=== PATIENT | male | born 1960 | race Caucasian/White ===

== ENCOUNTER → 2017-07-25 16:14 | Outpatient (CLI) | payer OTHER, MEDICARE, SELFPAY ==
--- NOTE | 2017-07-25 16:21 | DI.RAD.S_ITS ---
PROCEDURE: XR SHOULDER LT MIN 2V INDICATIONS: left shoulder pain after injury TECHNIQUE: 3 views of the shoulder were acquired. COMPARISON: [facility], , SHOULDER MINIMUM 2VIEW RIGHT, 08/14/2014, 9:44. FINDINGS: Bones: No fractures or dislocations. No suspicious bony lesions. Visualized ribs appear intact. Mild joint narrowing with periarticular osteophyte formation at the acromioclavicular and glenohumeral joints. Soft tissues: No suspicious soft tissue calcifications. Neural stimulator catheter projected over the T7-T8 level. IMPRESSION: Mild acromioclavicular and glenohumeral joint degeneration. Dictated by: Slade PALUMBO Interpreted: Mati Yuen MD on 07/25/2017 at 16:38 Approved by: Mati Yuen M.D. on 07/25/2017 at 17:27
== END ==
PROVIDERS: Family Provider Family Medicine; PCP Family Medicine; Visit Provider Internal Medicine
DX: M19.012 Primary osteoarthritis, left shoulder (principal); M25.512 Pain in left shoulder
CPT/HCPCS: 73030

== ENCOUNTER → 2017-10-20 07:06 | Outpatient (CLI) | payer OTHER, MEDICARE, SELFPAY ==
[2017-10-20 08:04] LABS: Alanine Aminotransferase 46 IU/L (21-72); Albumin 4.4 g/dL (3.5-5.0); Albumin Globulin Ratio 1.4 (1.0-2.8); Alkaline Phosphatase 79 U/L (38-126); Aspartate Aminotransferase 42 IU/L (17-59); BUN Creatinine Ratio 23.8 (6-22); Bilirubin Total 0.6 mg/dL (0.2-1.3); Blood Urea Nitrogen 19 mg/dL (9-20); Carbon Dioxide 28 mmol/L (22-32); Chloride 101 mmol/L (98-107); Cholesterol 163 mg/dL (140-199); Estimated Glomerular Filt Rate > 60.0 mL/min (>60); Globulin 3.1 g/dL (1.7-4.1); Glucose 245 mg/dL (70-100); HDL Cholesterol 34 mg/dL (40-60); HEMOLYSIS < 15 (0-50); LDL Cholesterol Calculated 94 mg/dL (<100); Potassium 4.1 mmol/L (3.4-5.1); Sodium 144 mmol/L (137-145); Total Protein 7.5 g/dL (6.3-8.2); Triglycerides 176 mg/dL (35-150)
[2017-10-20 08:06] LABS: Hemoglobin A1C% w Est Avg Glu 11.7 % (4.0-6.0)
[2017-10-20 08:07] LABS: Creatinine Urine Random 112.9 mg/dL
[2017-10-20 08:12] LABS: Microalbumi Creatinin Ratio Ur 20.3 ug/mg CR (<30); Microalbumin Urine Random 2.3 mg/dL (0-1.6)
[2017-10-20 08:33] LABS: Prostate Specific Antigen 0.295 ng/mL (0.10-4.00)
== END ==
PROVIDERS: Family Provider Family Medicine; PCP Family Medicine; Visit Provider Family Medicine
DX: E03.9 Hypothyroidism, unspecified (principal); E11.9 Type 2 diabetes mellitus without complications; E78.5 Hyperlipidemia, unspecified; I10 Essential (primary) hypertension; Z12.5 Encounter for screening for malignant neoplasm of prostate
CPT/HCPCS: 36415; 80053; 80061; 82043; 82570; 83036; 84153; 84443

== ENCOUNTER → 2017-11-24 08:20 | Outpatient (CLI) | payer OTHER, MEDICARE, SELFPAY | PROVIDERS: Family Provider Family Medicine; PCP Family Medicine | DX: Z23 Encounter for immunization (principal) | CPT/HCPCS: 90471; 90686 ==

== ENCOUNTER → 2018-02-14 07:07 | Outpatient (CLI) | payer OTHER, MEDICARE, SELFPAY ==
[2018-02-14 08:26] LABS: Add Manual Diff / Slide Review NO; Basophils Percent Auto 0.2 % (0-2); Hematocrit 42.5 % (41-53); Hemoglobin 14.1 g/dL (13.5-17.5); Lymphocytes Percent Auto 33.3 % (25-40); Mean Corpuscular HGB Conc 33.1 % (30-36); Mean Corpuscular Hemoglobin 28.7 PG (26-34); Mean Corpuscular Volume 86.7 fL (80-100); Monocytes Percent Auto 10.9 % (3-14); Neutrophils Absolute Auto 2700 /uL (1500-7000); Neutrophils Percent Auto 48.6 % (50-75); Platelet Count 228 X10^3/uL (150-400); Red Cell Distribution Width 13.3 % (11.6-14.8); White Blood Cell Count 5.6 X10^3/uL (4.5-11.0)
[2018-02-14 09:07] LABS: Alanine Aminotransferase 46 IU/L (21-72); Albumin 4.2 g/dL (3.5-5.0); Albumin Globulin Ratio 1.6 (1.0-2.8); Alkaline Phosphatase 65 U/L (38-126); Aspartate Aminotransferase 49 IU/L (17-59); Bilirubin Total 0.6 mg/dL (0.2-1.3); Blood Urea Nitrogen 14 mg/dL (9-20); Calcium 9.7 mg/dL (8.4-10.2); Carbon Dioxide 29 mmol/L (22-32); Chloride 101 mmol/L (98-107); Cholesterol 175 mg/dL (140-199); Estimated Glomerular Filt Rate > 60.0 mL/min (>60); Globulin 2.7 g/dL (1.7-4.1); Glucose 230 mg/dL (70-100); HDL Cholesterol 29 mg/dL (40-60); HEMOLYSIS < 15 (0-50); LDL Cholesterol Calculated 107 mg/dL (<100); Potassium 4.1 mmol/L (3.4-5.1); Sodium 140 mmol/L (137-145); Total Protein 6.9 g/dL (6.3-8.2); Triglycerides 196 mg/dL (35-150)
[2018-02-14 09:37] LABS: Prostate Specific Antigen Scrn 0.308 ng/mL (0.1-4.0); TSH w/ Reflex to FT4 0.02 uIU/mL (0.47-4.68)
[2018-02-14 10:12] LABS: Free T4, Direct Thyroxine 2.72 ng/dL (0.78-2.19)
[2018-02-17 08:02] LABS: C Peptide 0.58 ng/mL (0.80-3.85)
== END ==
PROVIDERS: PCP Internal Medicine; Visit Provider Internal Medicine
DX: E11.9 Type 2 diabetes mellitus without complications (principal); I10 Essential (primary) hypertension; E78.00 Pure hypercholesterolemia, unspecified; M15.0 Primary generalized (osteo)arthritis; Z12.5 Encounter for screening for malignant neoplasm of prostate
CPT/HCPCS: 36415; 80053; 80061; 84439; 84443; 84681; 85025; G0103

== ENCOUNTER → 2018-05-01 07:00 | Outpatient (CLI) | payer OTHER, MEDICARE, SELFPAY ==
[2018-05-01 07:44] LABS: Blood Urea Nitrogen 18 mg/dL (9-20); Carbon Dioxide 28 mmol/L (22-32); Chloride 101 mmol/L (98-107); Estimated Glomerular Filt Rate > 60.0 mL/min (>60); Glucose 148 mg/dL (70-100); HEMOLYSIS < 15 (0-50); Potassium 4.4 mmol/L (3.4-5.1); Sodium 140 mmol/L (137-145)
[2018-05-01 08:26] LABS: Free T3, Triiodothyronine Free 4.21 pg/mL (2.77-5.27); Free T4, Direct Thyroxine 2.13 ng/dL (0.78-2.19)
[2018-05-01 08:39] LABS: Thyroid Stimulating Hormone < 0.02 uIU/mL (0.47-4.68)
== END ==
PROVIDERS: PCP Internal Medicine; Visit Provider Internal Medicine
DX: E03.9 Hypothyroidism, unspecified (principal); E11.9 Type 2 diabetes mellitus without complications
CPT/HCPCS: 36415; 80048; 84439; 84443; 84481

== ENCOUNTER 2018-07-24 15:12 | Emergency (ER) | payer OTHER, MEDICARE, SELFPAY ==
[2018-07-24 15:17] VITALS: BP 175/89; PULSE 99; RESP 24; TEMP 37; O2SAT 98
--- NOTE | 2018-07-24 15:24 | DI.RAD.S_ITS ---
PROCEDURE: XR CHEST 1V INDICATIONS: chest pain TECHNIQUE: One view of the chest was acquired. COMPARISON: None. FINDINGS: Surgical changes and devices: None. Lungs and pleura: Lungs are clear. No pleural effusions or pneumothorax. Mediastinum: Mediastinal contours appear normal. Heart size is enlarged. Bones and chest wall: No suspicious bony lesions. Overlying soft tissues appear unremarkable. IMPRESSION: No acute process. Cardiomegaly. Dictated by: Kathy Leon M.D. on 07/24/2018 at 14:41 Approved by: Kathy Leon M.D. on 07/24/2018 at 14:42
[2018-07-24 15:30] VITALS: BP 151/84; PULSE 94; RESP 20; O2SAT 98
[2018-07-24 15:34] LABS: Add Manual Diff / Slide Review NO; Basophils Absolute Auto 100 /uL (0-100); Basophils Percent Auto 0.8 % (0-2); Eosinophils Absolute Auto 400 /uL (0-450); Eosinophils Percent Auto 4.5 % (2-4); Hematocrit 41.5 % (41-53); Hemoglobin 13.7 g/dL (13.5-17.5); Lymphocytes Absolute Auto 2200 /uL (1100-4500); Lymphocytes Percent Auto 26.4 % (25-40); Mean Corpuscular HGB Conc 33.1 % (30-36); Mean Corpuscular Hemoglobin 28.6 PG (26-34); Mean Corpuscular Volume 86.5 fL (80-100); Monocytes Absolute Auto 600 /uL (0-900); Monocytes Percent Auto 7.6 % (3-14); Neutrophils Absolute Auto 5000 /uL (1500-7000); Neutrophils Percent Auto 60.7 % (50-75); Platelet Count 258 X10^3/uL (150-400); Red Cell Distribution Width 13.6 % (11.6-14.8); White Blood Cell Count 8.2 X10^3/uL (4.5-11.0)
--- NOTE | 2018-07-24 15:39 | ED.DIZZY ---
HPI - Dizziness General Chief Complaint: Dizziness Stated Complaint: HEAD ACHE DIZZY CHEST PAIN Time Seen by Provider: 07/24/18 15:27 Source: patient Mode of arrival: ambulatory Limitations: no limitations History of Present Illness HPI Narrative: Patient is a 58-year-old male here for evaluation of multiple complaints to include sinus congestion, decreased hearing out of his left ear. Sore throat, cough, and dizziness. He also states that he has occasional right-sided chest discomfort that is sharp and lasts only seconds. He is unable to reproduce the pain by palpation. Has not tried any decongestants because he states that he is afraid to try them because of his high blood pressure. States he is taking the rest of his medications. Related Data Home Medications Medication Instructions Recorded Confirmed brimonidine 1 drp OPHTH TID #10 ml 09/03/15 07/24/18 dorzolamide 1 drp OPHTH #10 ml 09/03/15 06/12/18 amlodipine [Norvasc] 10 mg PO DAILY 07/24/18 07/24/18 atorvastatin 80 mg PO BEDTIME 07/24/18 07/24/18 hydrochlorothiazide 25 mg PO DAILY 07/24/18 07/24/18 metformin [Glucophage] 1,000 mg PO QPM 07/24/18 07/24/18 metformin [Glucophage] 1,500 mg PO QAM 07/24/18 07/24/18 Previous Rx's Medication Instructions Recorded LANCETS (LANCETS ULTRA THIN) 1 ea MC BID #300 ea 02/04/16 amitriptyline 0 PO HS #180 tab 01/11/17 Glucose: Test Strips 0 str BID #100 str 01/12/17 gemfibrozil 600 mg PO BIDAC #180 tab 05/20/17 meloxicam [Mobic] 15 mg PO AMCC #90 tab 06/01/17 insulin glargine (U-100) 100 65 unit SUBCUT QPM #5 syr 09/13/17 unit/mL (3 mL) subcutaneous pen insulin lispro (U-200) 200 unit/mL 30 unit SUBCUT TID #10 ml 09/13/17 (3 mL) subcutaneous pen levothyroxine 300 mcg tablet 300 mcg PO DAILY #90 tab 10/20/17 lisinopril 40 mg tablet 80 mg PO DAILY #120 tab 12/15/17 metoprolol tartrate 50 mg tablet 100 mg PO BID #360 tab 12/15/17 pantoprazole 40 mg tablet,delayed 40 mg PO DAILY #90 tab 01/11/18 release ondansetron 4 mg disintegrating 4 mg PO Q6-8H PRN #30 tab 06/06/18 tablet Allergies Allergy/AdvReac Type Severity Reaction Status Date / Time No Known Drug Allergies Allergy Unknown Verified 07/24/18 15:39 [NO KNOWN DRUG ALLERGIES] POLLEN Allergy Mild LEUNG Uncoded 07/24/18 15:39 Review of Systems Constitutional Denies fever(s) and Denies headache(s) Eyes Denies diplopia ENT Ears, Nose, Mouth, and Throat: Denies vertigo, Reports dizziness, Reports facial pain, Denies headache(s), Reports hearing loss, Reports disequilibrium, Reports sinus pressure, Reports sore throat and Denies throat swelling Cardiovascular Reports chest pain and Denies dyspnea Respiratory Reports cough and Denies dyspnea Gastrointestinal Gastrointestinal: Denies abdominal pain Musculoskeletal Denies myalgias and Denies arthralgias Integumentary/Breasts Denies rash Neurologic Denies vertigo, Reports dizziness, Denies headache(s) and Reports disequilibrium Hematologic/Lymphatic Denies easy bleeding and Denies easy bruising Allergic/Immunologic Denies throat swelling [facility] Medical History BPH (benign prostatic hyperplasia) (Chronic 2009) Chronic back pain (Chronic 1979) Diabetes mellitus (Chronic 2005) Foot pain (Chronic 2013) Hayfever (Chronic 2004) Hip pain (Chronic 2013) Hypertension (Chronic) Hypothyroidism (Chronic 2005) Lumbar spine pain (Chronic 1979) Recurrent sinusitis (Chronic 1999) Tinnitus (Chronic 2004) Chicken pox (Resolved 1970) Colon polyps (Resolved 2012) Surgical History (Updated 07/25/17 @ 11:50 by Serena Kendrick) Anesthesia (Resolved) History of nasal surgery (Resolved ~1972) History of spinal fusion (Resolved 02/1997) History of spinal fusion (Resolved 03/2000) S/P insertion of spinal cord stimulator (Resolved 09/2002) Status post laminectomy (Resolved 02/1980) Status post laminectomy (Resolved 02/1993) Family History (Updated 09/09/17 @ 15:33 by Serena Kendrick) Brother Age: 64 Irritable bowel syndrome Father Cancer High cholesterol Prostate cancer Grandmother Cancer Hodgkin's disease Mother Cancer Hodgkin's disease Grandfather Diabetes mellitus Heart disease Hypertension Grandmother Heart disease Brother No problems noted. Grandfather No problems noted. Sister No problems noted. Social History Smoking Status: Never smoker Family History (Updated 09/09/17 @ 15:33 by Serena Kendrick) Brother Age: 64 Irritable bowel syndrome Father Cancer High cholesterol Prostate cancer Grandmother Cancer Hodgkin's disease Mother Cancer Hodgkin's disease Grandfather Diabetes mellitus Heart disease Hypertension Grandmother Heart disease Brother No problems noted. Grandfather No problems noted. Sister No problems noted. Social History Smoking Status: Never smoker Exam Initial Vital Signs Initial Vital Signs: Vital Signs Temperature 98.6 F 07/24/18 15:17 Pulse Rate 99 H 07/24/18 15:17 Respiratory Rate 24 07/24/18 15:17 Blood Pressure 175/89 H 07/24/18 15:17 Pulse Oximetry 98 07/24/18 15:17 Const General: cooperative, healthy appearing, comfortable, well developed, well groomed and No acute distress Orientation: alert and oriented x3 HENMT Head: normal to inspection and normocephalic Ears: right TM abnormal (Obscured by cerumen) and left TM abnormal (Bulging without erythema) Resp Effort & Inspection: normal respiratory effort Auscultation: clear to auscultation bilaterally Cardio Rate: regular rate Rhythm: regular rhythm Skin Lesions: no lesions Rashes: no rashes Neuro General: alert and awake Cognition: normal cognition Speech: speech normal Motor: muscle tone normal throughout Extrem General: normal to inspection and capillary refill normal Psych Appearance: grossly normal and well kempt Scores HEART Score Heart Score history: Slightly Suspicious Heart Score EKG: Non-Specific repolarization disturbance Heart Score Age: 45-64 years old Heart Score risk factors: 1-2 risk factors Heart Score troponin: < or = to normal limit Heart Score Total: 3 Course Orders Ordered: ED Orders 07/24/18 15:17 EKG-12 Lead Stat 07/24/18 15:21 Complete Blood Count AUTO DIFF Stat Comprehensive Metabolic Panel Stat Lipase Stat Partial Thromboplastin Time Stat Prothrombin Time INR Stat Troponin & CK Cardiac Panel Stat 07/24/18 15:24 XR chest 1V Stat Vital Signs - 8 hr 07/24/18 15:17 07/24/18 15:30 07/24/18 16:30 Temperature 98.6 F Pulse Rate 99 H 94 H 93 H Respiratory Rate 24 20 24 Blood Pressure 175/89 H Blood Pressure [Right Arm] 151/84 H 138/76 Pulse Oximetry 98 98 96 MDM - Dizziness Lab Data Attestation: I reviewed the patient's lab results. Result diagrams: 07/24/18 15:21 07/24/18 15:21 Lab Results 07/24/18 07/24/18 07/24/18 Range/Units 15:21 15:21 15:21 WBC 8.2 (4.5-11.0) X10^3/uL RBC 4.80 (4.5-5.9) X10^6/uL Hgb 13.7 (13.5-17.5) g/dL Hct 41.5 (41-53) % MCV 86.5 (80-100) fL MCH 28.6 (26-34) PG MCHC 33.1 (30-36) % RDW 13.6 (11.6-14.8) % Plt Count 258 (150-400) X10^3/uL Neut % (Auto) 60.7 (50-75) % Lymph % (Auto) 26.4 (25-40) % [place] % (Auto) 7.6 (3-14) % Eos % (Auto) 4.5 H (2-4) % Baso % (Auto) 0.8 (0-2) % Neut # (Auto) 5000 (1460-7905) /uL Lymph # (Auto) 2200 (2376-0565) /uL [place] # (Auto) 600 (0-900) /uL Eos # (Auto) 400 (0-450) /uL Baso # (Auto) 100 (0-100) /uL PT 10.5 (10.1-12.7) SECONDS INR 0.9 (0.9-1.3) APTT 36 (26.4-36.2) SECONDS Sodium 139 (137-145) mmol/L Potassium 3.9 (3.4-5.1) mmol/L Chloride 99 (98-107) mmol/L Carbon Dioxide 28 (22-32) mmol/L BUN 19 (9-20) mg/dL Creatinine 0.90 (0.66-1.25) mg/dL Estimated GFR > 60.0 (>60) mL/min BUN/Creatinine Ratio 21.1 (6-22) Glucose 304 H (70-100) mg/dL Calcium 10.4 H (8.4-10.2) mg/dL Total Bilirubin 0.5 (0.2-1.3) mg/dL AST 27 (17-59) IU/L ALT 34 (21-72) IU/L Alkaline Phosphatase 79 (38-126) U/L Total Creatine Kinase 57 (55-170) U/L CK-MB (CK-2) TNP CK-MB (CK-2) Rel Index TNP Troponin I < 0.012 (0.01-0.034) ng/mL Total Protein 7.6 (6.3-8.2) g/dL Albumin 4.6 (3.5-5.0) g/dL Globulin 3.0 (1.7-4.1) g/dL Albumin/Globulin Ratio 1.5 (1.0-2.8) Lipase 64 (23-300) U/L Imaging Data Chest x-ray: Radiologist's impression: [place] [address] XRay Report Signed Patient: Geovanny Kwan WMR#: [id number] : 2Acct:[id number] Age/Sex: 58 / MDate of Service: 07/24/18 Loc: ED Accession Number: [id number] Procedure: XR chest 1V Ordering Provider: Adalid Pérez D.O. PROCEDURE: XR CHEST 1V INDICATIONS: chest pain TECHNIQUE: One view of the chest was acquired. COMPARISON: None. FINDINGS: Surgical changes and devices: None. Lungs and pleura: Lungs are clear. No pleural effusions or pneumothorax. Mediastinum: Mediastinal contours appear normal. Heart size is enlarged. Bones and chest wall: No suspicious bony lesions. Overlying soft tissues appear unremarkable. IMPRESSION: No acute process. Cardiomegaly. Dictated by: Kathy Leon M.D. on 07/24/2018 at 14:41 Approved by: Kathy Leon M.D. on 07/24/2018 at 14:42 ECG Data Attestation: I personally reviewed and interpreted this ECG as follows: Prior ECG tracings: not available for review Interpretation: Sinus rhythm Ventricular rate 95 Normal axis Normal QRS Normal QTC Nonspecific ST T changes MDM Narrative Medical decision making narrative: Patient does have right-sided sharp chest pain that is intermittent. EKG shows nonspecific EKG changes. His a heart score of 3. I do have low suspicion for ACS. I do suspect that his ?dizziness? is related to the sinus congestion. We did discuss the use of decongestants. Will hold on further workup for now. I have the patient call his primary doctor for follow-up. He expressed understanding and agreement with plan. Discharge Plan Departure Patient Disposition: Home Clinical Impression: Sinus congestion, Atypical chest pain Instructions: DI for Atypical Chest Pain, DI for Dizziness-Nonvertigo Activity Restrictions/Additional Instructions: Recommend you continue all of your medications as directed. Contact your primary care provider for follow-up. Also recommend you start taking a decongestant such as Claritin or Karolyn or Zyrtec as directed. Return to the emergency department for any new or worsening symptoms Prescriptions: No Action ondansetron 4 mg tablet,disintegrating 4 mg PO Q6-8H PRN (Reason: nausea and vomiting) Qty: 30 RF: 0 brimonidine 0.2 % drops 1 drp OPHTH TID Qty: 10 RF: 0 dorzolamide 2 % drops 1 drp OPHTH Qty: 10 RF: 0 LANCETS (LANCETS ULTRA THIN) 1 ea MC BID Qty: 300 RF: 2 amitriptyline 50 MG tablet PO HS Qty: 180 RF: 3 Glucose: Test Strips BID Qty: 100 RF: 3 gemfibrozil 600 MG tablet 600 mg PO BIDAC Qty: 180 RF: 3 meloxicam [Mobic] 15 MG tablet 15 mg PO AMCC Qty: 90 RF: 3 insulin lispro [Humalog KwikPen Insulin] 200 unit/mL (3 mL) insulin pen 30 unit SUBCUT TID Qty: 10 RF: 3 insulin glargine [Lantus Solostar U-100 Insulin] 100 unit/mL (3 mL) insulin pen 65 unit SUBCUT QPM Qty: 5 RF: 3 metoprolol tartrate 50 mg tablet 100 mg PO BID Qty: 360 RF: 1 lisinopril 40 mg tablet 80 mg PO DAILY Qty: 120 RF: 2 pantoprazole 40 mg tablet,delayed release (DR/EC) 40 mg PO DAILY Qty: 90 RF: 0 levothyroxine 300 mcg tablet 300 mcg PO DAILY Qty: 90 RF: 3 atorvastatin 80 mg tablet 80 mg PO BEDTIME RF: 0 amlodipine [Norvasc] 10 mg tablet 10 mg PO DAILY RF: 0 hydrochlorothiazide 25 mg tablet 25 mg PO DAILY RF: 0 metformin [Glucophage] 500 mg Tablet 1,000 mg PO QPM RF: 0 metformin [Glucophage] 500 mg tablet 1,500 mg PO QAM RF: 0 Referrals: Ambrose Castellanos MD [Primary Care Provider] -
[2018-07-24 15:40] LABS: INR 0.9 (0.9-1.3); Prothrombin Time 10.5 SECONDS (10.1-12.7)
[2018-07-24 15:42] LABS: PTT Partial Thromboplastin Tim 36 SECONDS (26.4-36.2)
[2018-07-24 15:46] LABS: Alanine Aminotransferase 34 IU/L (21-72); Albumin 4.6 g/dL (3.5-5.0); Albumin Globulin Ratio 1.5 (1.0-2.8); Alkaline Phosphatase 79 U/L (38-126); Aspartate Aminotransferase 27 IU/L (17-59); BUN Creatinine Ratio 21.1 (6-22); Bilirubin Total 0.5 mg/dL (0.2-1.3); Blood Urea Nitrogen 19 mg/dL (9-20); Calcium 10.4 mg/dL (8.4-10.2); Carbon Dioxide 28 mmol/L (22-32); Chloride 99 mmol/L (98-107); Creatine Kinase 57 U/L (55-170); Estimated Glomerular Filt Rate > 60.0 mL/min (>60); Glucose 304 mg/dL (70-100); HEMOLYSIS < 15 (0-50); Lipase 64 U/L (23-300); Potassium 3.9 mmol/L (3.4-5.1); Sodium 139 mmol/L (137-145); Total Protein 7.6 g/dL (6.3-8.2)
[2018-07-24 15:58] LABS: Troponin I < 0.012 ng/mL (0.01-0.034)
[2018-07-24 16:30] VITALS: BP 138/76; PULSE 93; RESP 24; O2SAT 96
[2018-07-24 17:32] VITALS: BP 143/74; PULSE 93; RESP 25; O2SAT 96
== END 2018-07-24 17:33 | disposition home or self-care (01) ==
PROVIDERS: Emergency Provider Emergency Medicine; PCP Internal Medicine
DX: R07.89 Other chest pain (principal)
CPT/HCPCS: 36591; 71045; 80053; 82550; 83690; 84484; 85025; 85610; 85730; 93005; 99283; 99285

== ENCOUNTER → 2018-09-05 07:01 | Outpatient (CLI) | payer OTHER, MEDICARE, SELFPAY ==
[2018-09-05 08:18] LABS: BUN Creatinine Ratio 22.5 (6-22); Blood Urea Nitrogen 18 mg/dL (9-20); Carbon Dioxide 28 mmol/L (22-32); Chloride 98 mmol/L (98-107); Estimated Glomerular Filt Rate > 60.0 mL/min (>60); HEMOLYSIS < 15 (0-50); Potassium 4.7 mmol/L (3.4-5.1); Sodium 136 mmol/L (137-145)
[2018-09-05 08:39] LABS: Glucose 498 mg/dL (70-100)
[2018-09-05 08:44] LABS: TSH w/ Reflex to FT4 < 0.02 uIU/mL (0.47-4.68)
[2018-09-05 09:18] LABS: Free T4, Direct Thyroxine 1.96 ng/dL (0.78-2.19)
== END ==
PROVIDERS: PCP Internal Medicine; Visit Provider Internal Medicine
DX: E11.9 Type 2 diabetes mellitus without complications (principal); I10 Essential (primary) hypertension; E03.9 Hypothyroidism, unspecified
CPT/HCPCS: 36415; 80048; 83036; 84439; 84443

== ENCOUNTER → 2018-10-26 13:42 | Outpatient (CLI) | payer OTHER, MEDICARE, SELFPAY ==
--- NOTE | 2018-10-26 | DI.NM.S_ITS ---
PROCEDURE: NM REESE PERF SPECT REST & STR Rest and exercise myocardial perfusion SPECT with gated imaging and ejection fraction RADIOPHARMACEUTICAL: 26.9 mCi Tc-99m sestamibi IV at rest and 27.9 mCi Tc-99m sestamibi IV at peak exercise. A [id number] was performed. INDICATIONS: Other chest pain TECHNIQUE: Radiopharmaceutical was injected at peak stress test, and also at rest. SPECT images were obtained. SPECT myocardial perfusion images were displayed in short axis, horizontal long axis, and vertical long axis views. Gated images were reviewed using WiSpry software. COMPARISON: None. CARDIAC STRESS: A standard Chun treadmill exercise tolerance test was performed by the patient under the supervision of an attending staff. The patient exercised for 4 minutes and 4seconds; functional aerobic impairment (MYLES) is +55 %. However, this is underestimated as the exercise was terminated by staff due to hypertension and does not reflect his exercise capacity. Hemodynamic data: There is normal heart rate and hypertensive response to exercise stress. Patient achieved 97% of maximum predicted heart rate at peak exercise. Symptoms: Patient denied chest pain during exercise. EKG: Bassline ECG with sinus tachycardia and diffuse ST/T abnormalities with no significant change with exercise; No diagnostic EKG changes of ischemia; no ectopy. FINDINGS: Raw data: There is good myocardial labeling by radiotracer. No significant motion artifacts. Gqvh-ns-sahfx ratio is 0.40 (normal is less than 0.38 for sestamibi tracer, and less than 0.50 for thallium tracer). Left ventricle function: Gated images demonstrate normal left ventricle wall thickening. No segmental wall motion abnormality. No transient ischemic dilation; TID is 0.66 (normal less than 1.3). The left ventricle resting end-diastolic volume is 93 mL. Left ventricle stress ejection fraction is >75% ; normal values are above 45%. Myocardial perfusion: There is a small, mild id inferolateral wall defect on supine stress images that completely resolves on prone imaging, consistent with artifact; otherwise normal distribution of activity in the left ventricular myocardium. No fixed or reversible perfusion defects. IMPRESSION: Normal perfusion study without evidence of ischemia or scar. Hypertensive response to exercise. Please see the hemodynamic and ECG section above for details. Dictated by: Romero Cortes M.D. on 10/27/2018 at 12:21 Approved by: Romero Cortes M.D. on 10/27/2018 at 12:30
--- NOTE | 2018-10-26 14:50 | PM.TREADMILL ---
Cardiac Stress Test Report Referral & Results Date Patient Seen: 10/26/18 Time Patient Seen: 14:30 Requesting provider: Ambrose Castellanos Indication: Chest pain Rest ECG: Sinus tachycardia Procedure Note: Today following both written and verbal informed consent the patient was exercised according to a standard Chun protocol patient went for a total of 4 minutes achieving a maximum heart rate of 158 maximum systolic blood pressure of 220. This is approximately 7 METs. Exercise was terminated at this point because of high heart rate/SBP. Patient was also given Cardiolite through a previously started Hep-Lock IV by the ground nuclear weapons assembly officer approximately 1 minute prior to the cessation of exercise. Targets met. Exaggerated response to exercise. No signs or symptoms of angina. No change in rhythm. Normal response to infuse materials. Impression: Will await perfusion imaging. Please note: Actual ECG tracings can be found in the PACS system.
== END ==
PROVIDERS: PCP Internal Medicine; Visit Provider Student in an Organized Health Care Education/Training Program
DX: R07.89 Other chest pain (principal); R00.0 Tachycardia, unspecified
CPT/HCPCS: 78452; 93016; 93017; 93018; A9502

== ENCOUNTER → 2018-10-31 11:00 | Outpatient (CLI) | payer OTHER, MEDICARE, SELFPAY | PROVIDERS: PCP Internal Medicine | DX: Z23 Encounter for immunization (principal) | CPT/HCPCS: 90471; 90686 ==

== ENCOUNTER → 2019-07-21 14:50 | Outpatient (CLI) | payer OTHER, SELFPAY ==
[2019-07-22 02:29] LABS: COVID19 Sendout Not Detected (Not Detect)
== END ==
PROVIDERS: PCP Internal Medicine; Visit Provider Physician Assistant
DX: Z01.818 Encounter for other preprocedural examination (principal)
CPT/HCPCS: 87635

== ENCOUNTER 2019-07-24 11:27 | Day surgery (SDC) | payer OTHER, SELFPAY ==
[2019-07-24] MEDS: PROPARACAINE 0.5% OPHTH SOL 2 DROPS EYE-OP (11:57)
[2019-07-24] MEDS: CATARACT EYE COMPOUND (10 DROPS/SYRINGE) 3 DROPS EYE-OP (12:02)
[2019-07-24 12:04] VITALS: BP 138/80; PULSE 90; RESP 18; TEMP 36.1; O2SAT 99
--- NOTE | 2019-07-24 12:55 | P.OP_ITS ---
Operative Date/Time/Diagnoses Pre-op diagnosis: Nuclear Cataract Left eye Post-op diagnosis: same Procedure & Clinicians Same procedure as scheduled: Yes Surgeon: Mauro Jones Anesthesia Type: MAC +/- and Sedation Operative Notes Procedure in detail: Patient brought to the operating suite. Tetracaine drops placed in the left eye. Patient was prepped and draped in sterile manner. Wire lid speculum was placed in the eye. Betadine drops were placed on the eye. This was irrigated. Lidocaine jelly was placed on the eye. A paracentesis port was created with a side-port blade. 0.1 mL 1% preservative free lidocaine was injected into the anterior chamber. The anterior chamber was deepened with viscoelastic. 2.6 mm keratome was used to create a temporal clear corneal incision. Cystotome and Utrata forceps were used to create continuous tear capsulorrhexis. Balanced salt solution was used to hydro dissect the nucleus. The phacoemulsification handpiece was inserted and the nucleus was removed using the stop and chop technique. The irrigation aspiration handpiece was inserted and the remaining cortex was removed. Anterior chamber was deepened with viscoe lastic. An Hicks ZCB00 intraocular lens with a power of 19.5 was injected into the capsular bag. Irrigation aspiration handpiece was inserted and the remaining viscoelastic was removed. Incision was hydrated with balanced salt solution and found to be leak free with pressure with Weck-Sun sponges. 0.1 mL Vigamox injected anterior chamber. 0.3 mL Kenalog 10 mg was injected subconjunctivally. Lid speculum was removed. The patient left the operating room in excellent condition. Complications: none Post-operative Condition: stable Disposition: same day surgery
--- NOTE | 2019-07-24 12:55 | PM.PREOP ---
Pre-operative Note Interval Note History & Physical reviewed/Exam performed by Physician: Yes Changes to H&P: No
[2019-07-24] MEDS: MOXIFLOXACIN INJ 5 MG/ML VIAL EYE-OP (13:15)
[2019-07-24] MEDS: PHENYLEPHRINE/LIDOCAINE VIAL (OR) 0.2 ML EYE-OP (13:15)
[2019-07-24] MEDS: TRIAMCINOLONE 50 MG/5 ML VIAL INJ (13:16)
[2019-07-24] MEDS: TETRACAINE 0.5% OPHTH DROPS 4 ML 2 DROPS EYE-OP (13:16)
[2019-07-24] MEDS: LIDOCAINE JELLY 2% 5 ML 1 APPLIC TOP (13:16)
[2019-07-24] MEDS: CHONDROIDTIN/SOD HYALURONATE 1.05 ML SYRINGE INTRAOCULA (13:16)
[2019-07-24] MEDS: BALANCED SALT IRRIG SOLN NO.2 500 ML, EPINEPHrine 1 MG IRR (13:17)
[2019-07-24 13:26] VITALS: BP 117/81; PULSE 90; TEMP 35.7; O2SAT 96
--- NOTE | 2019-07-24 14:31 | SUR.PHASEII ---
Mildly diaphoretic. Patient reported this is normal
== END 2019-07-24 13:42 | disposition home or self-care (01) ==
PROVIDERS: PCP Internal Medicine; Referring Provider Ophthalmology; Visit Provider Ophthalmology
PROC: (CPT 66984; principal; 2019-07-24 13:15)
DX: H25.12 Age-related nuclear cataract, left eye (principal); E11.9 Type 2 diabetes mellitus without complications; I10 Essential (primary) hypertension; K21.9 Gastro-esophageal reflux disease without esophagitis; E03.9 Hypothyroidism, unspecified
CPT/HCPCS: 66984; J0171; J2250; J3010; J3301

== ENCOUNTER → 2019-08-24 09:36 | Outpatient (CLI) | payer OTHER, SELFPAY ==
--- NOTE | 2019-08-24 09:40 | DI.RAD.S_ITS ---
PROCEDURE: XR ANKLE LT MIN 3V INDICATIONS: L lateral malleolar pain TECHNIQUE: 3 views of the ankle were acquired. COMPARISON: None. FINDINGS: Bones: No fractures or dislocations. Ankle mortise is normally aligned. No suspicious bony lesions. Soft tissues: No tibiotalar joint effusion. Achilles tendon appears normal. IMPRESSION: No acute ankle fracture or dislocation. Ankle mortise is congruent. Dictated by: Wong Turner M.D. on 08/24/2019 at 10:07 Approved by: Wong Turner M.D. on 08/24/2019 at 10:08
== END ==
PROVIDERS: PCP Internal Medicine; Referring Provider Nurse Practitioner; Visit Provider Nurse Practitioner
DX: M25.572 Pain in left ankle and joints of left foot (principal)
CPT/HCPCS: 73610

== ENCOUNTER → 2019-08-27 11:36 | Outpatient (CLI) | payer OTHER, SELFPAY ==
[2019-08-27 12:32] LABS: Add Manual Diff / Slide Review NO; Basophils Absolute Auto 0 /uL (0-100); Basophils Percent Auto 0.5 % (0-2); Eosinophils Absolute Auto 300 /uL (0-450); Eosinophils Percent Auto 4.1 % (2-4); Hematocrit 43.3 % (41-53); Hemoglobin 14.3 g/dL (13.5-17.5); Lymphocytes Absolute Auto 1600 /uL (1100-4500); Mean Corpuscular HGB Conc 32.9 % (30-36); Monocytes Absolute Auto 600 /uL (0-900); Monocytes Percent Auto 8.6 % (3-14); Neutrophils Absolute Auto 4400 /uL (1500-7000); Neutrophils Percent Auto 63.8 % (50-75); Platelet Count 234 X10^3/uL (150-400); Red Blood Cell Count 4.93 X10^6/uL (4.5-5.9); Red Cell Distribution Width 13.6 % (11.6-14.8); White Blood Cell Count 6.9 X10^3/uL (4.5-11.0)
[2019-08-27 12:38] LABS: Hemoglobin A1C% w Est Avg Glu 11.8 % (4.0-6.0)
[2019-08-27 12:59] LABS: Alanine Aminotransferase 45 IU/L (<50); Albumin Globulin Ratio 1.9 (1.0-2.8); Alkaline Phosphatase 85 U/L (38-126); Aspartate Aminotransferase 40 IU/L (17-59); BUN Creatinine Ratio 23.2 (6-22); Bilirubin Total 0.7 mg/dL (0.2-1.3); Blood Urea Nitrogen 19 mg/dL (9-20); C-Reactive Protein Quant 1.3 mg/dL (<1.0); Carbon Dioxide 29 mmol/L (22-32); Chloride 100 mmol/L (98-107); Cholesterol 157 mg/dL (140-199); Estimated Glomerular Filt Rate > 60.0 mL/min (>60); Globulin 2.6 g/dL (1.7-4.1); Glucose 367 mg/dL (70-100); HDL Cholesterol 36 mg/dL (40-60); HEMOLYSIS < 15 (0-50); LDL Cholesterol Calculated 74 mg/dL (<100); Potassium 4.5 mmol/L (3.4-5.1); Sodium 141 mmol/L (137-145); Total Protein 7.6 g/dL (6.3-8.2); Triglycerides 234 mg/dL (35-150); Uric Acid 7.2 mg/dL (3.5-8.5)
[2019-08-27 13:03] LABS: Erythrocyte Sedimentation Rate 17 MM/HR (0-15)
[2019-08-27 13:27] LABS: TSH w/ Reflex to FT4 0.08 uIU/mL (0.47-4.68)
[2019-08-27 13:57] LABS: Free T4, Direct Thyroxine 1.84 ng/dL (0.78-2.19)
== END ==
PROVIDERS: PCP Internal Medicine; Referring Provider Physician Assistant; Visit Provider Physician Assistant
DX: M10.9 Gout, unspecified (principal); I10 Essential (primary) hypertension; E11.9 Type 2 diabetes mellitus without complications; E78.00 Pure hypercholesterolemia, unspecified; E03.9 Hypothyroidism, unspecified
CPT/HCPCS: 36415; 80053; 80061; 83036; 84439; 84443; 84550; 85025; 85651; 86140

== ENCOUNTER → 2019-10-31 10:24 | Outpatient (CLI) | payer OTHER, SELFPAY ==
[2019-11-01 15:41] LABS: COVID19 Sendout Not Detected (Not Detect)
== END ==
PROVIDERS: PCP Internal Medicine; Visit Provider Physician Assistant
DX: Z11.59 Encounter for screening for other viral diseases (principal)
CPT/HCPCS: 87635

== ENCOUNTER → 2019-10-31 10:36 | Outpatient (CLI) | payer OTHER, SELFPAY ==
--- NOTE | 2019-10-31 | DI.RAD.S_ITS ---
PROCEDURE: XR CHEST 2V INDICATIONS: COUGH TECHNIQUE: 2 views of the chest were acquired. COMPARISON: [facility], CR, XR CHEST 1V, 07/24/2018, 15:31. FINDINGS: Surgical changes and devices: Thoracic spine neurostimulator. Lungs and pleura: Lungs are clear. No pleural effusions or pneumothorax. Mediastinum: Mediastinal contours are normal. Heart size is normal. Bones and chest wall: No suspicious bony abnormalities. Soft tissues appear unremarkable. IMPRESSION: No acute cardiopulmonary disease process. Dictated by: Carlene Love MD, PhD on 10/31/2019 at 16:27 Approved by: Carlene Love MD, PhD on 10/31/2019 at 16:28
== END ==
PROVIDERS: PCP Internal Medicine; Referring Provider Internal Medicine; Visit Provider Internal Medicine
DX: R05 Cough (principal)
CPT/HCPCS: 71046

== ENCOUNTER → 2019-11-27 03:36 | Outpatient (CLI) | payer OTHER, SELFPAY | PROVIDERS: PCP Internal Medicine; Referring Provider Internal Medicine; Visit Provider Internal Medicine | DX: Z23 Encounter for immunization (principal) | CPT/HCPCS: 90471; 90686 ==

== ENCOUNTER → 2019-12-17 14:59 | Outpatient (CLI) | payer OTHER, SELFPAY ==
[2019-12-17 16:53] LABS: Add Manual Diff / Slide Review NO; Basophils Absolute Auto 100 /uL (0-100); Basophils Percent Auto 0.7 % (0-2); Eosinophils Absolute Auto 400 /uL (0-450); Eosinophils Percent Auto 4.1 % (2-4); Hematocrit 41.7 % (41-53); Hemoglobin 13.7 g/dL (13.5-17.5); Lymphocytes Absolute Auto 2200 /uL (1100-4500); Mean Corpuscular HGB Conc 32.9 % (30-36); Mean Corpuscular Hemoglobin 29.1 PG (26-34); Mean Corpuscular Volume 88.5 fL (80-100); Monocytes Absolute Auto 700 /uL (0-900); Monocytes Percent Auto 8.3 % (3-14); Neutrophils Absolute Auto 5600 /uL (1500-7000); Neutrophils Percent Auto 61.9 % (50-75); Platelet Count 314 X10^3/uL (150-400); Red Blood Cell Count 4.72 X10^6/uL (4.5-5.9); Red Cell Distribution Width 13.3 % (11.6-14.8)
[2019-12-17 17:31] LABS: Erythrocyte Sedimentation Rate 10 MM/HR (0-15)
[2019-12-17 17:34] LABS: C-Reactive Protein Quant 0.7 mg/dL (<1.0)
== END ==
PROVIDERS: PCP Internal Medicine; Referring Provider Physician Assistant; Visit Provider Physician Assistant
DX: M26.609 Unspecified temporomandibular joint disorder, unspecified side (principal)
CPT/HCPCS: 36415; 85025; 85651; 86140

== ENCOUNTER → 2020-02-13 14:46 | Outpatient (CLI) | payer OTHER, SELFPAY ==
[2020-02-13 15:03] LABS: Bacteria Urine None Seen; RBC Urine None Seen (0-5/HPF); WBC Urine None Seen (0-5/HPF)
[2020-02-13 15:38] LABS: Appearance Urine UA CLEAR; Bilirubin Urine UA NEGATIVE (NEGATIVE); Color Urine UA YELLOW; Glucose Urine UA 2+ g/dL (Negative); Ketones Urine UA NEGATIVE (NEGATIVE); Leukocyte Esterase Urine UA NEGATIVE (NEGATIVE); Nitrite Urine UA NEGATIVE (Negative); Occult Blood Urine UA NEGATIVE (Negative); Protein Urine UA NEGATIVE (Negative); Specific Gravity Urine UA 1.025 (1.000-1.035); Urobilinogen Urine UA 0.2 E.U./dL (0.2); pH Urine UA 5.5 (4.5-8.0)
[2020-02-13 15:42] LABS: Culture Indicated Urine Cult Not Indicated; Urine Comments Microscopic Normal
[2020-02-13 15:52] LABS: BUN Creatinine Ratio 18.8 (6-22); Blood Urea Nitrogen 15 mg/dL (9-20); Calcium 10.1 mg/dL (8.4-10.2); Carbon Dioxide 31 mmol/L (22-32); Chloride 103 mmol/L (98-107); Estimated Glomerular Filt Rate > 60.0 mL/min (>60); Glucose 82 mg/dL (70-100); HEMOLYSIS < 15 (0-50); Potassium 3.8 mmol/L (3.4-5.1); Sodium 142 mmol/L (137-145)
[2020-02-13 15:55] LABS: Add Manual Diff / Slide Review NO; Basophils Absolute Auto 100 /uL (0-100); Basophils Percent Auto 0.5 % (0-2); Eosinophils Absolute Auto 500 /uL (0-450); Eosinophils Percent Auto 4.6 % (2-4); Hematocrit 44.1 % (41-53); Hemoglobin 14.6 g/dL (13.5-17.5); Lymphocytes Absolute Auto 3100 /uL (1100-4500); Lymphocytes Percent Auto 28.7 % (25-40); Mean Corpuscular HGB Conc 33.1 % (30-36); Mean Corpuscular Volume 87.8 fL (80-100); Monocytes Absolute Auto 1100 /uL (0-900); Monocytes Percent Auto 10.4 % (3-14); Neutrophils Absolute Auto 6000 /uL (1500-7000); Neutrophils Percent Auto 55.8 % (50-75); Platelet Count 385 X10^3/uL (150-400); Red Blood Cell Count 5.02 X10^6/uL (4.5-5.9); Red Cell Distribution Width 13.6 % (11.6-14.8); White Blood Cell Count 10.8 X10^3/uL (4.5-11.0)
== END ==
PROVIDERS: PCP Internal Medicine; Referring Provider Orthopaedic Surgery Orthopaedic Surgery of the Spine; Visit Provider Orthopaedic Surgery Orthopaedic Surgery of the Spine
DX: T85.192A Other mechanical complication of implanted electronic neurostimulator of spinal cord electrode (lead), initial encounter (principal)
CPT/HCPCS: 36415; 80048; 81001; 85025

== ENCOUNTER → 2020-02-15 14:53 | Outpatient (CLI) | payer OTHER, SELFPAY ==
[2020-02-15] MEDS: COVID-19 VACC(MODERNA-1)/PF 100 MCG/0.5 ML VIAL IM (15:05)
== END ==
PROVIDERS: PCP Internal Medicine; Visit Provider Internal Medicine
DX: Z23 Encounter for immunization (principal)
CPT/HCPCS: 0011A; 91301

== ENCOUNTER → 2020-03-13 15:57 | Outpatient (CLI) | payer OTHER, SELFPAY ==
[2020-03-13] MEDS: COVID-19 VACC #2, MRNA(MOD) 100 MCG/0.5 ML VIAL IM (16:04)
== END ==
PROVIDERS: PCP Internal Medicine; Visit Provider Internal Medicine
DX: Z23 Encounter for immunization (principal)
CPT/HCPCS: 0012A; 91301

== ENCOUNTER → 2020-04-01 09:53 | Outpatient (CLI) | payer OTHER, SELFPAY ==
[2020-04-01 10:01] LABS: Bacteria Urine None Seen; RBC Urine None Seen (0-5/HPF); WBC Urine None Seen (0-5/HPF)
[2020-04-01 10:39] LABS: Add Manual Diff / Slide Review NO; Basophils Absolute Auto 0 /uL (0-100); Basophils Percent Auto 0.7 % (0-2); Eosinophils Absolute Auto 200 /uL (0-450); Eosinophils Percent Auto 5.5 % (2-4); Hemoglobin 13.2 g/dL (13.5-17.5); Lymphocytes Absolute Auto 1400 /uL (1100-4500); Lymphocytes Percent Auto 31.4 % (25-40); Mean Corpuscular HGB Conc 32.1 % (30-36); Mean Corpuscular Hemoglobin 28.9 PG (26-34); Mean Corpuscular Volume 90.1 fL (80-100); Monocytes Absolute Auto 400 /uL (0-900); Monocytes Percent Auto 10.2 % (3-14); Neutrophils Absolute Auto 2300 /uL (1500-7000); Neutrophils Percent Auto 52.2 % (50-75); Platelet Count 293 X10^3/uL (150-400); Red Blood Cell Count 4.55 X10^6/uL (4.5-5.9); Red Cell Distribution Width 13.9 % (11.6-14.8); White Blood Cell Count 4.4 X10^3/uL (4.5-11.0)
[2020-04-01 10:43] LABS: Appearance Urine UA CLEAR; Bilirubin Urine UA NEGATIVE (NEGATIVE); Color Urine UA YELLOW; Glucose Urine UA 3+ g/dL (Negative); Ketones Urine UA TRACE (NEGATIVE); Leukocyte Esterase Urine UA NEGATIVE (NEGATIVE); Nitrite Urine UA NEGATIVE (Negative); Occult Blood Urine UA NEGATIVE (Negative); Protein Urine UA NEGATIVE (Negative); Urobilinogen Urine UA 0.2 E.U./dL (0.2)
[2020-04-01 10:59] LABS: Blood Urea Nitrogen 28 mg/dL (9-20); Carbon Dioxide 26 mmol/L (22-32); Chloride 96 mmol/L (98-107); Estimated Glomerular Filt Rate > 60.0 mL/min (>60); HEMOLYSIS < 15 (0-50); Potassium 4.8 mmol/L (3.4-5.1); Sodium 133 mmol/L (137-145)
[2020-04-01 11:34] LABS: Glucose 529 mg/dL (70-100)
[2020-04-01 11:54] LABS: Culture Indicated Urine Cult Not Indicated; Urine Comments Microscopic Normal
== END ==
PROVIDERS: PCP Internal Medicine; Referring Provider Orthopaedic Surgery Orthopaedic Surgery of the Spine; Visit Provider Orthopaedic Surgery Orthopaedic Surgery of the Spine
DX: T85.192A Other mechanical complication of implanted electronic neurostimulator of spinal cord electrode (lead), initial encounter (principal)
CPT/HCPCS: 36415; 80048; 81001; 85025

== ENCOUNTER → 2020-04-03 10:58 | Outpatient (CLI) | payer OTHER, SELFPAY ==
[2020-04-03 11:21] LABS: Bacteria Urine None Seen; RBC Urine None Seen (0-5/HPF); WBC Urine None Seen (0-5/HPF)
[2020-04-03 11:47] LABS: BUN Creatinine Ratio 34.5 (6-22); Blood Urea Nitrogen 30 mg/dL (9-20); Calcium 10.4 mg/dL (8.4-10.2); Carbon Dioxide 26 mmol/L (22-32); Chloride 101 mmol/L (98-107); Estimated Glomerular Filt Rate > 60.0 mL/min (>60); Glucose 91 mg/dL (70-100); HEMOLYSIS 21 (0-50); Potassium 3.7 mmol/L (3.4-5.1); Sodium 136 mmol/L (137-145)
[2020-04-03 12:01] LABS: Appearance Urine UA CLEAR; Bilirubin Urine UA NEGATIVE (NEGATIVE); Color Urine UA YELLOW; Glucose Urine UA NEGATIVE (Negative); Ketones Urine UA NEGATIVE (NEGATIVE); Leukocyte Esterase Urine UA NEGATIVE (NEGATIVE); Nitrite Urine UA NEGATIVE (Negative); Occult Blood Urine UA NEGATIVE (Negative); Protein Urine UA NEGATIVE (Negative); Urobilinogen Urine UA 0.2 E.U./dL (0.2)
[2020-04-03 12:07] LABS: Culture Indicated Urine Cult Not Indicated; Urine Comments Microscopic Normal
== END ==
PROVIDERS: PCP Internal Medicine; Referring Provider Orthopaedic Surgery Orthopaedic Surgery of the Spine; Visit Provider Orthopaedic Surgery Orthopaedic Surgery of the Spine
DX: T85.192A Other mechanical complication of implanted electronic neurostimulator of spinal cord electrode (lead), initial encounter (principal)
CPT/HCPCS: 36415; 80048; 81001; 83036

== ENCOUNTER → 2020-08-01 16:39 | Outpatient (CLI) | payer OTHER, SELFPAY ==
[2020-08-01 17:34] LABS: Add Manual Diff / Slide Review NO; Basophils Absolute Auto 100 /uL (0-100); Eosinophils Absolute Auto 900 /uL (0-450); Eosinophils Percent Auto 9.1 % (2-4); Hematocrit 38.8 % (41-53); Hemoglobin 12.7 g/dL (13.5-17.5); Lymphocytes Absolute Auto 1900 /uL (1100-4500); Lymphocytes Percent Auto 19.4 % (25-40); Mean Corpuscular HGB Conc 32.7 % (30-36); Mean Corpuscular Hemoglobin 28.9 PG (26-34); Mean Corpuscular Volume 88.6 fL (80-100); Monocytes Absolute Auto 1000 /uL (0-900); Monocytes Percent Auto 9.8 % (3-14); Neutrophils Absolute Auto 6100 /uL (1500-7000); Neutrophils Percent Auto 60.7 % (50-75); Platelet Count 291 X10^3/uL (150-400); Red Blood Cell Count 4.38 X10^6/uL (4.5-5.9); Red Cell Distribution Width 15.8 % (11.6-14.8)
[2020-08-01 17:42] LABS: Hemoglobin A1C% w Est Avg Glu 6.2 % (4.0-6.0)
[2020-08-01 17:50] LABS: Blood Urea Nitrogen 18 mg/dL (9-20); Carbon Dioxide 30 mmol/L (22-32); Chloride 104 mmol/L (98-107); Estimated Glomerular Filt Rate > 60.0 mL/min (>60); Glucose 59 mg/dL (70-100); HEMOLYSIS < 15 (0-50); Sodium 143 mmol/L (137-145)
== END ==
PROVIDERS: PCP Internal Medicine; Referring Provider Internal Medicine; Visit Provider Internal Medicine
DX: E11.9 Type 2 diabetes mellitus without complications (principal); I10 Essential (primary) hypertension
CPT/HCPCS: 36415; 80048; 83036; 85025

== ENCOUNTER → 2020-11-13 | Outpatient (CLI) | payer OTHER, SELFPAY | PROVIDERS: PCP Internal Medicine; Referring Provider Internal Medicine; Visit Provider Internal Medicine | DX: Z23 Encounter for immunization (principal) | CPT/HCPCS: 90471; 90686 ==

== ENCOUNTER → 2020-12-12 09:09 | Outpatient (CLI) | payer OTHER, SELFPAY ==
[2020-12-12] MEDS: COVID-19 VACC #3, MRNA(MOD) 50 MCG/0.25 ML VIAL IM (09:17)
== END ==
PROVIDERS: PCP Internal Medicine; Visit Provider Internal Medicine
DX: Z23 Encounter for immunization (principal)
CPT/HCPCS: 0013A; 91301